=== PATIENT | male | born 1970 | race Caucasian/White ===

== ENCOUNTER 2019-07-24 18:00 | Inpatient (IN) | payer OTHER, SELFPAY ==
[~2019-07-24] VITALS: Ht 172.7 cm; Wt 90.7 kg
[2019-07-24 18:00] VITALS: BP_SYST 116
--- NOTE | 2019-07-24 18:00 | NUR ---
Patient to ER bed 8 to gown for evaluation. Side rails up.
--- NOTE | 2019-07-24 18:10 | NUR ---
pt arrives from home w/ c/o cough and congestion. Pt is currently afebrile. Pt was tested for the flu elsewhere, and was negative for both a and b. Pt was dx w/ PNA and recently finished a z-pack. No no other c/o at the moment. Will continue to monitor
--- NOTE | 2019-07-24 18:15 | NUR ---
ER at bedside examining patient.
--- NOTE | 2019-07-24 18:20 | NUR ---
EKG done and given to
[2019-07-24 19:12] LABS: BASOPHILS % (AUTO) 0.4 % (0.0-2.0); EOSINOPHILS % (AUTO) 0.1 % (0.0-4.0); HEMATOCRIT 40.3 % (36-54); HEMOGLOBIN 13.7 g/dL (14.0-18.0); LYMPHOCYTES # (AUTO) 0.8 K/uL (1.0-5.5); LYMPHOCYTES % (AUTO) 14.7 % (20.5-51.5); MEAN CORPUSCULAR HEMOGLOBIN 30 pg (27-31); MEAN CORPUSCULAR HGB CONC 34 % (32-36); MEAN CORPUSCULAR VOLUME 89 fL (79.0-98.0); MONOCYTES # (AUTO) 0.2 K/uL (0.0-1.0); MONOCYTES % (AUTO) 4.5 % (1.7-9.3); NEUTROPHILS # (AUTO) 4.2 K/uL (1.8-7.7); NEUTROPHILS % (AUTO) 80.3 % (40.0-70.0); PLATELET COUNT (AUTO) 141 K/uL (130-430); RED BLOOD CELL COUNT(AUTO) 4.53 MIL/uL (4.2-6.2); RED CELL DISTRIBUTION WIDTH 13.5 % (9.0-15.0); WHITE BLOOD COUNT (AUTO) 5.2 K/uL (4.8-10.8)
[2019-07-24] MEDS ORDERED: VANCOMYCIN HCL 1,000 MG in D5W 250 ML IV ONE (19:15)
[2019-07-24] MEDS ORDERED: PIPERACILLIN/TAZO 3.38 GM in D5W 50 ML IV ONE (19:15)
--- NOTE | 2019-07-24 19:20 | NUR ---
Report given to Cathy QUINTANILLA. Pt is in stable condition
--- NOTE | 2019-07-24 19:25 | NUR ---
Covid-19 collected sent to lab
--- NOTE | 2019-07-24 19:25 | NUR ---
Zosyn currently infusing per MD order.
[2019-07-24] MEDS ORDERED: PIPERACILLIN/TAZOBACTAM 3.375 GM/VIAL (ZOSYN) IV ONE (19:33)
[2019-07-24 19:57] LABS: POTASSIUM 3.8 mmol/L (3.5-5.1)
[2019-07-24 19:58] LABS: ALBUMIN 3.4 g/dL (3.4-4.8); CALCIUM 7.3 mg/dL (8.4-11.0); CREATININE 1.03 mg/dL (0.55-1.30); TOTAL BILIRUBIN 0.4 mg/dL (0.0-1.0)
[2019-07-24] MEDS ORDERED: VANCOMYCIN HCL 1000 MG/VIAL IV ONE (20:24)
[2019-07-24 20:41] LABS: PROTHROMBIN TIME 10.4 SECS (9.5-12.5)
--- NOTE | 2019-07-24 20:43 | NUR ---
Patient will be admitted to care of Dr. Topete / Dr Ballesteros. Admitted to telemetry unit. Will go to room 126 B. Belongings list completed. Complete and up to date summary report printed. SBAR report to be given at bedside with opportunity for questions.
--- NOTE | 2019-07-24 21:00 | NUR ---
Patient's code status is full code paperwork completed and placed in chart.
[2019-07-24] MEDS ORDERED: BREX0.25 PO (21:06)
[2019-07-24] MEDS ORDERED: BUPR75TA8 PO (21:06)
[2019-07-24] MEDS ORDERED: PRO20 PO (21:06)
[2019-07-24] MEDS ORDERED: LAM25 PO (21:06)
--- NOTE | 2019-07-24 21:07 | NUR ---
Medication reconciliation completed with information provided by patient. He is unsure dosages and will have call to clarify dosages. . Any prior medication reconciliation on file was reviewed and corrected.
--- NOTE | 2019-07-24 21:50 | NUR ---
Patient able to obtain medication list. Medications updated in system.
--- NOTE | 2019-07-24 22:17 | NUR ---
Transfer to Telemetry via ACLS protocol. Licensed nurse present. IV present no signs or symptoms of infiltration.
[2019-07-24 22:35] VITALS: BP_SYST 126
--- NOTE | 2019-07-24 22:35 | NUR ---
Admission Note Received patient from ER with diagnosis of Pneumonia rule out COVID. Initial Plan of Care discussed-patient verbalized understanding. Oriented to room, call light, pain management and safety.
--- NOTE | 2019-07-24 22:40 | NUR ---
INITIAL NOTES Patient is resting, no signs of distress observed. Patient states 0/10 pain, no shortness of breath. IV site patent, dressing c/d/i. Call light within reach, bed alarm off per patient request, patient verbalizes understanding of use of call light and is able to demonstrate back. Bed at lowest position. Will continue to monitor.
--- NOTE | 2019-07-25 00:05 | NUR ---
Patient is resting, states 0/10 pain. no shortness of breath noted. Will continue to monitor.
--- NOTE | 2019-07-25 00:14 | NUR ---
PAGED I PAGED I SPOKE IVY EXCHANGE
--- NOTE | 2019-07-25 00:30 | NUR ---
SPOKE TO DR. BRITO, TO HOLD NIGHT TIME MEDS.
[2019-07-25] MEDS ORDERED: ALBUTEROL MDI INHALATION 8 GM INH INH PRN (01:15)
[2019-07-25] MEDS ORDERED: HYDROcodone/ACETAMIN 5-325 MG TAB (NORCO/ VICODIN) PO PRN (01:30)
--- NOTE | 2019-07-25 01:45 | NUR ---
DR. BRITO MAKING ROUNDS, TYLENOL FOR PATIENT MADE AVAILABLE.
[2019-07-25 01:49] VITALS: BP_SYST 126
--- NOTE | 2019-07-25 01:54 | NUR ---
CONSULT: CONSULT CALLED FOR DR. JARA I SPOKE WITH CESAR AGUILAR REASON FOR CONSULT: R/O YOUSIF REQUESTING CONSUL: DR. SALEH LAND DEVELOPMENT PROJECT MANAGER PHONE NUMBER: [phone]
--- NOTE | 2019-07-25 02:00 | NUR ---
Patient is resting, no signs of shortness of breath, patient is comfortable at this time. will continue to monitor.
[2019-07-25] MEDS ORDERED: cefTRIAXone 1 GM IVPB PREMIX 50 ML IV ONE (03:38)
[2019-07-25] MEDS ORDERED: AZITHROMYCIN 500 MG/VIAL (ZITHROMAX) IV ONE (03:38)
[2019-07-25] MEDS: cefTRIAXone 1 GM IVPB PREMIX 50 ML IV SCH (04:09)
--- NOTE | 2019-07-25 04:11 | NUR ---
Patient is resting, no signs of distress observed. Safety precautions in place. Will continue to monitor.
--- NOTE | 2019-07-25 04:44 | NUR ---
CONSULT: CONSULT CALLED FOR DR. BALLESTEROS I SPOKE WITH CESAR AGUILAR REASON FOR CONSULT: PNEUMONIA REQUESTING CONSULT: DR. SALEH
[2019-07-25] MEDS: ACETAMINOPHEN 325 MG TABLET PO PRN ×4 (05:04→23:02)
[2019-07-25] MEDS: AZITHROMYCIN 500 MG in NS 250 ML IV SCH (05:05)
--- NOTE | 2019-07-25 07:00 | NUR ---
CLOSING NOTES Patient is resting, no signs of distress observed. IV site patent, dressings c/d/i. Airborne, droplet and contact precautions maintained throughout shift. Call light within reach, bed alarm off after patient verbalizes understanding. Bed at lowest position. All needs met throughout shift. Will endorse care to oncoming shift.
[2019-07-25 07:14] LABS: BASOPHILS % (AUTO) 0.4 % (0.0-2.0); HEMATOCRIT 39.8 % (36-54); HEMOGLOBIN 13.4 g/dL (14.0-18.0); LYMPHOCYTES # (AUTO) 0.7 K/uL (1.0-5.5); LYMPHOCYTES % (AUTO) 15.6 % (20.5-51.5); MEAN CORPUSCULAR HEMOGLOBIN 30 pg (27-31); MEAN CORPUSCULAR HGB CONC 34 % (32-36); MEAN CORPUSCULAR VOLUME 88 fL (79.0-98.0); MONOCYTES # (AUTO) 0.2 K/uL (0.0-1.0); NEUTROPHILS # (AUTO) 3.6 K/uL (1.8-7.7); PLATELET COUNT (AUTO) 149 K/uL (130-430); WHITE BLOOD COUNT (AUTO) 4.5 K/uL (4.8-10.8)
[2019-07-25 07:20] LABS: ALANINE AMINOTRANSFERASE 40 U/L (12-78); ANION GAP 12 (5-15); ASPARTATE AMINOTRANSFERASE 29 U/L (10-37); CHLORIDE 98 mmol/L (98-107); CREATININE 1.04 mg/dL (0.55-1.30); GLUCOSE 103 mg/dL (70-99); POTASSIUM 3.3 mmol/L (3.5-5.1); SODIUM SERUM 133 mmol/L (136-145); TOTAL BILIRUBIN 0.4 mg/dL (0.0-1.0); UREA NITROGEN, BLOOD 14 mg/dL (8-21)
[2019-07-25 07:21] LABS: GFR AFRICAN AMERICAN 98 mL/min (>90)
--- NOTE | 2019-07-25 08:00 | NUR ---
Initial notes: Patient is AAOX4, he is Kuwaiti speaking. Does not seem in any kind of distress. Took his breakfast tray and medication without any problem. Patient states he feel well at the moment. His vitals are stable, no fever at the moment. Bed is low, locked, 2 side rails are up and call light is within reach. Sj QUINTANILLA
[2019-07-25] MEDS: ENOXAPARIN SODIUM 40 MG/0.4 ML SYRINGE SUBCUT SCH (08:30)
[2019-07-25 08:40] VITALS: BP_SYST 139
--- NOTE | 2019-07-25 09:28 | NUR ---
Nutrition Update Anderson Scale 18 noted. Pt admitted for pneumonia w/ r/o COVID. Diet: regular BMI: 30.4 kg/m2 RD to follow per nutrition care standards.
[2019-07-25] MEDS ORDERED: ALBUTEROL SULFATE 0.083% 2.5 MG/3 ML VIAL.NEB INH PRN (09:45)
--- NOTE | 2019-07-25 10:02 | NUR ---
Patient is sleeping, he ate 90% of the meal and is in bed. He states no new complaints. Bed is low, locked, 2 side rails are up and call light is within reach. Sj QUINTANILLA
--- NOTE | 2019-07-25 12:26 | NUR ---
Brought in tray for patient, states he has a headache, checked vitals, his temp is rising 99.6. Gave Tylenol for headache and helped patient sit up to eat meal. Bed is low, locked, 2 side rails are up and call light is within reach. Sj QUINTANILLA
[2019-07-25 12:29] VITALS: BP_SYST 124
[2019-07-25 16:08] VITALS: BP_SYST 108
--- NOTE | 2019-07-25 16:20 | NUR ---
Patient is sleeping, gave him tylenol as his temp is slowly rising. Patient states he feels well and only has a minor headache, will continue to monitor. Bed is low, locked, 2 side rails are up and call light is within reach. Sj QUINTANILLA
[2019-07-25] MEDS ORDERED: LAMO200T2 PO (16:33)
[2019-07-25] MEDS ORDERED: BREX2TAB PO (16:33)
--- NOTE | 2019-07-25 18:27 | NUR ---
Closing notes: Patient is doing better after tylenol, his vitals this evening were good. His IV site is intact. He doesn't seem in distress. brought home meds as pharmacy stated they didn't have one of the meds he needs. Has been given to pharmacy for verification. was paged to see if she can verify home meds. Covid test is still pending. I will give report to nightshift nurse. Bed is low, locked, 2 side rails are up and call light is within reach. Sj QUINTANILLA
--- NOTE | 2019-07-25 19:30 | NUR ---
OPENING NOTES Patient is resting, no signs of distress observed. IV site patent, dressings c/d/i. Call light within reach, bed alarm refused after patient verbalizes use of call light, bed at lowest position. Patient states no pain at this time. Airborne, droplet and contact precautions in place. Will continue to monitor.
[2019-07-25 20:00] VITALS: BP_SYST 120
--- NOTE | 2019-07-25 21:00 | NUR ---
Emptied urinal, patient resting comfortably. No signs of acute respiratory distress observed. Will continue to monitor.
--- NOTE | 2019-07-25 23:10 | NUR ---
Patient is asleep, rise and fall of chest observed. No signs of distress observed. Will continue to monitor.
[2019-07-26] VITALS: BP_SYST 121
[2019-07-26] MEDS: cefTRIAXone 1 GM IVPB PREMIX 50 ML IV SCH (00:40)
--- NOTE | 2019-07-26 01:21 | NUR ---
Patient is resting, deep breathing education provided. Patient states he feels no shortness of breath and is comfortable. Will continue to monitor and provide nasal canula at bedside. Will continue to monitor.
[2019-07-26] MEDS: AZITHROMYCIN 500 MG in NS 250 ML IV SCH (01:37)
--- NOTE | 2019-07-26 03:10 | NUR ---
Patient verbalizes understanding of use of nasal canula, no signs of distress observed. O2 saturation at 94% on 2L nasal canula. Will continue to monitor.
--- NOTE | 2019-07-26 04:00 | NUR ---
Patient is resting, no signs of distress observed. Patient resting comfortably, 96% O2 saturation on 2L NC. Will continue to monitor.
[2019-07-26] MEDS: ACETAMINOPHEN 325 MG TABLET PO PRN ×2 (06:25→17:09)
--- NOTE | 2019-07-26 06:43 | NUR ---
CLOSING NOTES Patient is resting, tylenol provided for headache of 3/, patient has 98.7 temperature. Iv site patent, dressings c/d/i. No signs of acute respiratory distress observed. Call light within reach, bed alarm off per patient request after patient verbalizes understanding. O2 saturation of 95 with 2L NC. All needs met throughout shift. All needs met throughout shift. Airborne, contact, and droplet precautions kept throughout shift.
[2019-07-26 08:35] VITALS: BP_SYST 147
--- NOTE | 2019-07-26 08:35 | NUR ---
Routine Patient sitting on side of bed with no distress noted. Scheduled medication given. Patient stable at this time.
[2019-07-26] MEDS: ENOXAPARIN SODIUM 40 MG/0.4 ML SYRINGE SUBCUT SCH (08:38)
--- NOTE | 2019-07-26 10:20 | NUR ---
Routine Patient resting comfortably in bed with no distress noted at this time. Patient stable.
[2019-07-26 12:05] VITALS: BP_SYST 96
--- NOTE | 2019-07-26 12:08 | NUR ---
CONSULTATION PAGED REASON FOR CONSULTATION:RULE OUT COVID-19 WAS CONSULT CALLED?Y PERSON WHO WAS NOTIFIED:JENNI MATHEWS CONSULTING PHYSICIAN:JENNI MATHEWS HIGH DENSITY TALC COATER OPERATOR SPECIALTY:INFECTIOUS DISEASE HIGH DENSITY TALC COATER OPERATOR PHONE NUMBER:[phone] REQUESTING PHYSICIAN:TEVIN BERTRAND
--- NOTE | 2019-07-26 13:08 | NUR ---
Spoke to Nedra at Dr. Ballesteros's office; awaiting call back regarding med rec.
[2019-07-26] MEDS: HYDROXYCHLOROQUINE SULFATE 200 MG TABLET PO SCH ×2 (15:48→21:42)
--- NOTE | 2019-07-26 15:50 | NUR ---
Routine Scheduled medication given per order. Patient stable at this time.
[2019-07-26 16:10] VITALS: BP_SYST 122
--- NOTE | 2019-07-26 16:10 | NUR ---
PAGED PAGED TEVIN BERTRAND AT [phone] SPOKE WITH FERNANDA,
--- NOTE | 2019-07-26 16:40 | NUR ---
Routine Patient resting comfortably in bed with no distress noted. Patient stable at this time.
--- NOTE | 2019-07-26 17:14 | NUR ---
MD ERICK MCDOWELL CALLED AT SPOKE WITH DR.KANGARLU WORTHY [employer]TER [employer]ANT SUPERVISOR.
--- NOTE | 2019-07-26 17:18 | NUR ---
Paged Dr. Ballesteros regarding completion of med rec. Spoke to Meena; awaiting call back from doctor.
[2019-07-26] MEDS ORDERED: buPROPion HCL 150 MG XL TAB PO ONE (17:30)
[2019-07-26] MEDS ORDERED: FLUoxetine HCL 20 MG CAPSULE (PROzac) PO ONE (17:30)
--- NOTE | 2019-07-26 19:20 | NUR ---
OPENING NOTE Bedside report received from dayshift nurse. Patient received lying in bed, eyes closed, no s/s of acute distress noted. Breathing is even and unlabored. Call light with patient. Will continue to monitor and will maintain droplet precaution throughout shift.
[2019-07-26 20:00] VITALS: BP_SYST 111
--- NOTE | 2019-07-26 21:00 | NUR ---
MEDPASS/NEW IV SITE Scheduled medications given to patient. Patient tolerated well. IV site at left AC got pulled out, DC'ed at this time, catheter fully intact, no active bleeding noted. NEW IV site inserted at left hand, 22 gauge, patient tolerated well, IV site patent, no signs of infiltration noted. Will monitor for signs of infection. All needs met at this time. Call light with patient. Will continue to monitor.
[2019-07-26] MEDS: LamoTRIgine 100 MG TABLET PO SCH (21:38)
--- NOTE | 2019-07-26 23:00 | NUR ---
ROUNDS Patient in bed sleeping at this time. No s/s of acute distress noted. Breathing even and unlabored. Will continue to monitor.
[2019-07-27] VITALS: BP_SYST 118
[2019-07-27] MEDS: cefTRIAXone 1 GM IVPB PREMIX 50 ML IV SCH (00:26)
--- NOTE | 2019-07-27 01:00 | NUR ---
IV ANTIBIOTICS HUNG Antibiotics hung at this time, infusing well, IV site patent, no signs of infiltration or infection noted. No s/s of acute distress noted. Breathing even and unlabored. Call light with patient. Will continue to monitor.
[2019-07-27] MEDS: AZITHROMYCIN 500 MG in NS 250 ML IV SCH (01:09)
--- NOTE | 2019-07-27 03:00 | NUR ---
ROUNDS Patient in bed asleep. No s/s of acute distress noted. Breathing even and unlabored. Call light with patient. Will continue to monitor.
--- NOTE | 2019-07-27 05:00 | NUR ---
ROUNDS Patient in bed asleep at this time. No signs of discomfort noted. Chest rise and fall even bilaterally. Call light with patient. Will continue to monitor.
--- NOTE | 2019-07-27 06:38 | NUR ---
CLOSING NOTES Patient in bed sleeping. No s/s of acute distress noted. Breathing even and unlabored. HOB raised, nasal canula attached properly, on 2L of oxygen. IV site is patent, no signs of infiltration or infection noted. All needs met throughout shift. Fall, safety, and isolation precautions maintained throughout shift. Will continue to monitor until patient care is endorsed to oncoming dayshift nurse.
--- NOTE | 2019-07-27 07:45 | NUR ---
INITIAL NOTE Received pt in bed, no s/s of distress or sob noted. Pt has no c/o pain at this time, pt aaox4, verbal. Pt has oxygen at 2 liters via nasal cannula, saturation of 94%. IV site is patent, no signs of infiltration or infection noted, saline lock. Fall, safety, and isolation precautions in place. Bed at lowest position, call light within reach, will continue to monitor pt for any changes.
[2019-07-27 08:10] VITALS: BP_SYST 133
[2019-07-27 08:47] LABS: ALBUMIN 2.6 g/dL (3.4-4.8); BILIRUBIN,DIRECT 0.1 mg/dL (0.0-0.3); TOTAL BILIRUBIN 0.4 mg/dL (0.0-1.0)
[2019-07-27] MEDS: FLUoxetine HCL 20 MG CAPSULE (PROzac) PO SCH (09:42)
[2019-07-27] MEDS: buPROPion HCL 150 MG XL TAB PO SCH (09:42)
[2019-07-27] MEDS: HYDROXYCHLOROQUINE SULFATE 200 MG TABLET PO SCH ×2 (09:43→21:00)
[2019-07-27] MEDS: ACETAMINOPHEN 325 MG TABLET PO PRN (09:43)
[2019-07-27] MEDS: ENOXAPARIN SODIUM 40 MG/0.4 ML SYRINGE SUBCUT SCH (09:44)
--- NOTE | 2019-07-27 10:13 | NUR ---
Rounds Pt in bed, no s/s of distress or sob noted, pt stated that his headache is getting better, pt in stable condition, pt watching tv, will continue to monitor pt for any changes.
--- NOTE | 2019-07-27 11:55 | NUR ---
MD CALL SPOKE WITH DR TATE AND PER MD IF PATIENT'S SATURATION IS WNL ON ROOM AIR THEN PT CAN BE D/C HOME TODAY FOR SELF ISOLATION. WILL CHECK OXYGEN SATURATION ON ROOM AIR.
[2019-07-27] MEDS ORDERED: ASCORBIC ACID 500 MG TABLET PO ONE (12:00)
--- NOTE | 2019-07-27 12:06 | NUR ---
ROUNDS PT IN BED, EATING LUNCH. NO S/S OF DISTRESS OR SOB NOTED, PT IN STABLE CONDITION, WILL CONTINUE TO MONITOR PT FOR ANY CHANGES.
[2019-07-27 12:30] VITALS: BP_SYST 109
--- NOTE | 2019-07-27 13:30 | NUR ---
SATURATION PT SATURATION DROPPED DOWN TO 88% WHEN PT WAS ON ROOM AIR. PT DID NOT C/O SOB OR CHEST PAIN. PLACE PT BACK ON OXYGEN 1 LITER VIA NASAL CANNULA. WILL CONTINUE TO MONITOR PT FOR ANY CHANGES. PT HAS AN OCCASIONAL COUGH.
--- NOTE | 2019-07-27 14:50 | NUR ---
ROUNDS PT IN BED, WATCHING TV. NO S/S OF DISTRESS OR SOB NOTED, PT IN STABLE CONDITION, WILL CONTINUE TO MONITOR PT FOR ANY CHANGES.
--- NOTE | 2019-07-27 16:20 | NUR ---
ROUNDS PT IN BED, ON HIS PHONE. NO S/S OF DISTRESS OR SOB NOTED, PT IN STABLE CONDITION, WILL CONTINUE TO MONITOR PT FOR ANY CHANGES.
[2019-07-27 16:53] VITALS: BP_SYST 112
--- NOTE | 2019-07-27 18:18 | NUR ---
CLOSING NOTE Pt in bed, no s/s of distress or sob noted. Pt has no c/o pain at this time, pt aaox4, verbal. Pt has oxygen at 1 liters via nasal cannula, saturation of 93%. IV site is patent, no signs of infiltration or infection noted, saline lock. Fall, safety, and isolation precautions in place. Bed at lowest position, call light within reach, will endorse care of pt to incoming nurse. Needs met throughout shift.
--- NOTE | 2019-07-27 19:15 | NUR ---
OPENING NOTE Report received from dayshift nurse. Patient received lying in bed, no s/s of acute distress noted. Breathing even and unlabored, nasal canula attached properly, on 1L of oxygen. IV site is patent, no signs of infiltration or infection noted. Call light with patient. Will continue to monitor.
[2019-07-27 20:00] VITALS: BP_SYST 130
[2019-07-27] MEDS ORDERED: HYDROXYCHLOROQUINE SULFATE 200 MG TABLET PO SCH (21:00)
--- NOTE | 2019-07-27 21:00 | NUR ---
ROUNDS Patient in bed sleeping. No signs of discomfort noted. Chest rise and fall even bilaterally. nasal cannula attached properly, on 1L of oxygen. Call light with patient. Will continue to monitor.
[2019-07-27] MEDS: LamoTRIgine 100 MG TABLET PO SCH (22:47)
--- NOTE | 2019-07-27 23:00 | NUR ---
ROUNDS Patient sleeping at this time. No s/s of acute distress noted. Call light with patient. Will continue to monitor.
[2019-07-28] VITALS: BP_SYST 128
[2019-07-28] MEDS: AZITHROMYCIN 500 MG in NS 250 ML IV SCH (00:57)
--- NOTE | 2019-07-28 01:00 | NUR ---
ROUNDS Patient sleeping at this time. IV antibiotic infusing. No signs of discomfort noted. Call light with patient. Will continue to monitor.
[2019-07-28] MEDS: ONDANSETRON HCL 4 MG/2 ML VIAL IVP PRN (01:19)
[2019-07-28] MEDS: cefTRIAXone 1 GM IVPB PREMIX 50 ML IV SCH (02:09)
--- NOTE | 2019-07-28 03:00 | NUR ---
ROUNDS Patient in bed asleep at this time. No s/s of acute distress noted. Breathing even and unlabored. Call light with patient. Will continue to monitor.
--- NOTE | 2019-07-28 05:00 | NUR ---
ROUNDS Patient in bed sleeping at this time. No signs of discomfort noted. Chest rise and fall even bilaterally. Call light with patient. Will continue to monitor.
--- NOTE | 2019-07-28 06:46 | NUR ---
CLOSING NOTES Patient sleeping at this time. No s/s of acute distress noted. Breathing even and unlabored. Nasal canula attached properly, on 1L of oxygen. IV site is patent, no signs of infiltration or infection noted. All needs met throughout shift. Fall, safety, and isolation precautions maintained throughout shift. Will continue to monitor until patient care is endorsed to oncoming dayshift nurse.
[2019-07-28 07:04] LABS: ALBUMIN 2.6 g/dL (3.4-4.8); BILIRUBIN,DIRECT 0.1 mg/dL (0.0-0.3); TOTAL BILIRUBIN 0.4 mg/dL (0.0-1.0)
[2019-07-28 08:22] VITALS: BP_SYST 119
--- NOTE | 2019-07-28 08:22 | NUR ---
INITIAL ROUNDS Received pt AAOx4, no s/s resp distress, no c/o shortness of breath, no c/o pain or discomfort. Plan of care for the day reviewed with pt-pt verbalized his understanding. Pt on Droplet Isolation precautions. Pain management, disease process, isolation, skin and safety precautions discussed with pt-teach back done. Call light within reach.
[2019-07-28] MEDS: HYDROXYCHLOROQUINE SULFATE 200 MG TABLET PO SCH ×2 (09:00→20:15)
[2019-07-28] MEDS: buPROPion HCL 150 MG XL TAB PO SCH (09:37)
[2019-07-28] MEDS: FLUoxetine HCL 20 MG CAPSULE (PROzac) PO SCH (09:37)
[2019-07-28] MEDS: ASCORBIC ACID 500 MG TABLET PO SCH (09:38)
[2019-07-28] MEDS: ENOXAPARIN SODIUM 40 MG/0.4 ML SYRINGE SUBCUT SCH (09:39)
[2019-07-28 12:17] VITALS: BP_SYST 119
[2019-07-28 12:35] VITALS: BP_SYST 115
--- NOTE | 2019-07-28 12:40 | NUR ---
ROUNDS Pt resting quietly in bed with no s/s resp distress, no c/o pain or discomfort. Pt given lunch tray and fresh ice water. Needs met, all precautions remain in place. Call light within reach.
--- NOTE | 2019-07-28 14:19 | NUR ---
ROUNDS Pt resting quietly in bed with no s/s resp distress, no c/o pain or discomfort. No changes, all precautions remain in place, call light within reach.
[2019-07-28 16:08] VITALS: BP_SYST 128
--- NOTE | 2019-07-28 19:00 | NUR ---
CLOSING NOTE Pt resting quietly in bed with no s/s resp distress, no c/o pain or discomfort. Needs met. Droplet isolation precautions maintained throughout shift. Call light within reach.
[2019-07-28] MEDS: LamoTRIgine 100 MG TABLET PO SCH (20:15)
--- NOTE | 2019-07-28 20:15 | NUR ---
Initial note: Received report from dayshift RN. Patient is awake, laying in bed, watching TV. No acute distress. Denies pain, nausea, or shortness of breath. Alert and oriented x4. SaO2 = 93% on 3L NC. IV site to left hand in place, flushes well with NS without any infiltration, site saline locked. Provided patient with fresh ice water and hygiene supplies. Call light is with patient. Safety, fall precautions in place. Special droplet precautions in place for positive COVID-19. Will continue with plan of care.
[2019-07-28 20:34] VITALS: BP_SYST 118
--- NOTE | 2019-07-29 00:15 | NUR ---
Rounds: Patient is resting in bed, no acute distress. Tolerating 3L NC, even and unlabored respirations. IV is patent and intact, will initiate infusion of scheduled Rocephin IV. Call light is with patient. Will continue to monitor.
[2019-07-29] MEDS: cefTRIAXone 1 GM IVPB PREMIX 50 ML IV SCH (00:20)
[2019-07-29 00:43] VITALS: BP_SYST 119
[2019-07-29] MEDS: ACETAMINOPHEN 325 MG TABLET PO PRN ×2 (01:09→21:54)
[2019-07-29] MEDS: AZITHROMYCIN 500 MG in NS 250 ML IV SCH (01:09)
--- NOTE | 2019-07-29 01:12 | NUR ---
Headache: Patient complaining of a headache and requested Tylenol. Administered 650 MG Tylenol as indicated. Education provided regarding indications, side effects. Patient verbalized understanding. Call light with patient. Will continue monitoring.
--- NOTE | 2019-07-29 04:50 | NUR ---
Rounds: Patient is resting in bed, no acute distress. Even and unlabored breathing on 3L NC, SaO2 = 99%. Titrated O2 down to 2L, patient tolerating well, SaO2 = 98%. IV site patent and intact. Call light with patient. Will continue monitoring.
--- NOTE | 2019-07-29 06:34 | NUR ---
Closing note: Patient is resting in bed. Does not show any acute distress. Tolerating 2L NC, SaO2 = 99%. Denies pain, shortness of breath, nausea. IV site patent and intact. Call light with patient. All needs met. Safety, fall precautions observed. Special droplet/contact isolation precautions maintained. Will endorse care to dayshift RN.
--- NOTE | 2019-07-29 07:15 | NUR ---
OPENING NOTES PT AWAKE, ALERT, AND ORIENTED SITTING UP AT THE EDGE OF THE BED. NONLABORED BREATHING NOTED, O2 AT 94%. NO ACUTE DISTRESS NOTED. IV LINE INTACT AND PATENT, NO SIGNS OF INFILTRATION NOTED. PT DENIES PAIN AT THIS TIME. ALL NEEDS MET. CALL LIGHT IN REACH. DROPLET AND CONTACT PRECAUTIONS IN PLACE. FALL AND ASPIRATION PRECAUTIONS IN PLACE. CONTINUE TO MONITOR. Addendum: 07/29/19 at 0825 by Shawna Reeves RN PT ON 2L VIA NASAL CANNULA, TOLERATING WELL.
[2019-07-29 08:06] VITALS: BP_SYST 116
[2019-07-29] MEDS: FLUoxetine HCL 20 MG CAPSULE (PROzac) PO SCH (08:57)
[2019-07-29] MEDS: buPROPion HCL 150 MG XL TAB PO SCH (08:57)
[2019-07-29] MEDS: HYDROXYCHLOROQUINE SULFATE 200 MG TABLET PO SCH ×2 (08:57→22:05)
[2019-07-29] MEDS: ASCORBIC ACID 500 MG TABLET PO SCH (08:57)
[2019-07-29] MEDS: ENOXAPARIN SODIUM 40 MG/0.4 ML SYRINGE SUBCUT SCH (08:58)
--- NOTE | 2019-07-29 09:02 | NUR ---
ROUTINE MEDS ROUTINE MEDS ADMINISTERED ORDERED PER MD, EDUCATION GIVEN, TOLERATED WELL. NO ACUTE DISTRESS NOTED. ALL NEEDS MET. CALL LIGHT IN REACH. NONLABORED BREATHING NOTED, RECEIVING 2L OF O2 VIA NASAL CANNULA, TOLERATING WELL. ALL NEEDS MET. CALL LIGHT IN REACH. CONTINUE TO MONITOR.
[2019-07-29 09:20] LABS: ALBUMIN 2.6 g/dL (3.4-4.8); BILIRUBIN,DIRECT 0.2 mg/dL (0.0-0.3); TOTAL BILIRUBIN 0.5 mg/dL (0.0-1.0)
[2019-07-29 10:01] LABS: BASOPHILS % (AUTO) 0.3 % (0.0-2.0); CALCIUM 8.3 mg/dL (8.4-11.0); CREATININE 0.96 mg/dL (0.55-1.30); EOSINOPHILS # (AUTO) 0.1 K/uL (0.0-0.4); EOSINOPHILS % (AUTO) 1.6 % (0.0-4.0); HEMATOCRIT 41.6 % (36-54); HEMOGLOBIN 13.9 g/dL (14.0-18.0); LYMPHOCYTES # (AUTO) 0.8 K/uL (1.0-5.5); LYMPHOCYTES % (AUTO) 15.6 % (20.5-51.5); MEAN CORPUSCULAR HEMOGLOBIN 30 pg (27-31); MEAN CORPUSCULAR HGB CONC 33 % (32-36); MEAN CORPUSCULAR VOLUME 89 fL (79.0-98.0); MONOCYTES # (AUTO) 0.4 K/uL (0.0-1.0); MONOCYTES % (AUTO) 8.6 % (1.7-9.3); NEUTROPHILS # (AUTO) 3.6 K/uL (1.8-7.7); NEUTROPHILS % (AUTO) 73.9 % (40.0-70.0); PLATELET COUNT (AUTO) 269 K/uL (130-430); POTASSIUM 3.7 mmol/L (3.5-5.1); RED BLOOD CELL COUNT(AUTO) 4.69 MIL/uL (4.2-6.2); RED CELL DISTRIBUTION WIDTH 13.4 % (9.0-15.0); WHITE BLOOD COUNT (AUTO) 4.9 K/uL (4.8-10.8)
--- NOTE | 2019-07-29 11:00 | NUR ---
ROUNDS PT WATCHING TV IN BED. NO ACUTE DISTRESS NOTED. RECEIVING O2 AT 2LPM, TOLERATING WELL, DENIES SOB. ALL NEEDS MET. CALL LIGHT IN REACH. CONTINUE TO MONITOR.
[2019-07-29 12:10] VITALS: BP_SYST 117
--- NOTE | 2019-07-29 12:28 | NUR ---
GAVE LUNCH TO PT. VITAL SIGNS STABLE. PT SITTING UP AT THE EDGE OF THE BED. PT DENIES PAIN AND DENIES SOB AT THIS TIME. NONLABORED BREATHING NOTED, RECEIVING 2L OF OXYGEN VIA NASAL CANNULA, TOLERATING WELL, O2 AT 96%. NO ACUTE DISTRESS NOTED. ALL NEEDS MET. CALL LIGHT IN REACH. CONTACT AND DROPLET PRECAUTIONS IN PLACE. CONTINUE TO MONITOR.
--- NOTE | 2019-07-29 14:00 | NUR ---
ROUNDS PT WATCHING TV. NO ACUTE DISTRESS NOTED. ALL NEEDS MET. CALL LIGHT INR EACH. CONTINUE TO MONITOR.
[2019-07-29 16:00] VITALS: BP_SYST 126
--- NOTE | 2019-07-29 19:11 | NUR ---
CLOSING NOTES PT AWAKE, ALERT, AND ORIENTED. NONLABORED BREATHING NOTED, RECEIVING OXYGEN AT 2LPM VIA NASAL CANNULA. PT DENIES PAIN AND DENIES SOB AT THIS TIME. IV LINE INTACT AND PATENT, NO SIGNS OF INFILTRATION NOTED. NO ACUTE DISTRESS NOTED. ALL NEEDS MET. CALL LIGHT IN REACH. FALL AND ASPIRATION PRECAUTIONS IN PLACE. WILL ENDORSE TO NOC NURSE.
--- NOTE | 2019-07-29 19:40 | NUR ---
Initial note: Received report from sharon RN. Patient is awake, no acute distress. Even and unlabored respirations on 2L NC. IV site patent and benign. Call light with patient. Safety, fall precautions in place. Special contact/droplet precautions in place for positive COVID-19. Will continue with plan of care.
[2019-07-29 20:00] VITALS: BP_SYST 118
[2019-07-29] MEDS: LamoTRIgine 100 MG TABLET PO SCH (21:54)
--- NOTE | 2019-07-29 22:40 | NUR ---
Paged: Dr. Cabrera (on-call for Dr. Verma) paged for orders.
--- NOTE | 2019-07-29 23:01 | NUR ---
Dr. Cabrera: Spoke with MD over phone regarding Zithromax IV course duration. Informed MD that Dr. Verma wrote in his notes to continue with Zithromax IV for total of 7 days, and that the current order is for total of 5 days. MD was updated regarding patient's current status. Per MD, 5 days of Zithromax IV should be fine for the moment. No new orders received.
--- NOTE | 2019-07-30 00:35 | NUR ---
Rounds: Patient is laying in bed, no acute distress. SaO2 on 2L NC = 100%. Even and unlabored breathing. O2 titrated down via nasal cannula to 1L/min via nasal cannula, patient tolerating well, SaO2 on 1L NC = 96%. Call light is with patient. Will continue monitoring.
[2019-07-30 00:36] VITALS: BP_SYST 119
[2019-07-30] MEDS: cefTRIAXone 1 GM IVPB PREMIX 50 ML IV SCH (02:08)
--- NOTE | 2019-07-30 03:20 | NUR ---
Rounds: Patient is awake, resting in bed, no acute distress. SaO2 on 1L NC = 97%. Respirations are even, unlabored. Patient verbalized that he has been going to the bathroom without O2, denies any shortness of breath while ambulating. Patient was placed on room air at this time, patient tolerating well, SaO2 on room air = 95%. Call light is with patient. Will continue monitoring.
--- NOTE | 2019-07-30 06:43 | NUR ---
Closing note: Patient is sleeping. No acute distress. Tolerating room air, even and unlabored breathing. IV site patent and benign. All needs met. Safety, fall, special contact/droplet precautions observed. Call light with patient. Will endorse care to dayshift RN.
[2019-07-30 07:28] LABS: ALBUMIN 2.5 g/dL (3.4-4.8); BILIRUBIN,DIRECT 0.1 mg/dL (0.0-0.3); TOTAL BILIRUBIN 0.4 mg/dL (0.0-1.0)
[2019-07-30 08:00] VITALS: BP_SYST 119
--- NOTE | 2019-07-30 08:00 | NUR ---
initial notes rec patient awake alert with ivl on the l hand intact. no infiltration noted. bed to the lowest position and side rails up and locked. bed to the lowest position and side rails up and locked, call light within reached and knows when to call for help. due meds were given and farhana well.
[2019-07-30] MEDS: HYDROXYCHLOROQUINE SULFATE 200 MG TABLET PO SCH (09:00)
[2019-07-30] MEDS: FLUoxetine HCL 20 MG CAPSULE (PROzac) PO SCH (09:00)
[2019-07-30] MEDS: buPROPion HCL 150 MG XL TAB PO SCH (09:00)
[2019-07-30] MEDS: ASCORBIC ACID 500 MG TABLET PO SCH (09:00)
[2019-07-30] MEDS: ENOXAPARIN SODIUM 40 MG/0.4 ML SYRINGE SUBCUT SCH (09:00)
[2019-07-30] MEDS: ONDANSETRON HCL 4 MG/2 ML VIAL IVP PRN (09:00)
--- NOTE | 2019-07-30 10:53 | NUR ---
rounds dr lancaster is here and would like to d/c patient.
[2019-07-30 12:00] VITALS: BP_SYST 121
--- NOTE | 2019-07-30 12:00 | NUR ---
rounds seen by dr lancaster and dr sullivan .
[2019-07-30] MEDS ORDERED: ALBMDI INH (15:04)
[2019-07-30] MEDS ORDERED: AMOX500C2 PO (15:04)
[2019-07-30 15:23] VITALS: BP_SYST 121
--- NOTE | 2019-07-30 15:30 | NUR ---
rounds pt was seen by dr donovan and stated patient can be discharged. dr sullivan came and d/c patient.
--- NOTE | 2019-07-30 16:50 | NUR ---
closing notes pt was d/cd. exit care rendered. instructed re appt with dr glover and call his office in the [facility]. dr lancaster instruction to isolate himself for 7 days more. was sent home with plaquenil 4 tabs of [address] mcpherson. instructed to take 2 tabs tonight and 2 in am to complete the dose . ivl and id band were removed and monitor box was left in the room. no acute distress noted . was wheeled outside via wheelchair where the was waiting.
== END 2019-07-30 16:45 | disposition home or self-care (01) | DRG 177 ==
LOC: SED 18:00 → EEVIPCON 20:21 → STU 20:21
PROVIDERS: ADMIT Internal Medicine Hospice and Palliative Medicine; ATTEND Internal Medicine Hospice and Palliative Medicine
DX: U07.1 COVID-19 (principal); A41.9 Sepsis, unspecified organism; J18.9 Pneumonia, unspecified organism; J96.01 Acute respiratory failure with hypoxia; J12.89 Other viral pneumonia; F32.9 Major depressive disorder, single episode, unspecified; Z78.9 Other specified health status
CPT/HCPCS: 36415; 71045; 80048; 80053; 80076; 83605; 83880; 84484; 85025; 85610-TC; 85730-TC; 87040-TC; 87086; 87186-TC; 93005; 96365; 96366; 96367; 99285; G0378; J0456; J0696; J1650; J2405; J2543; J3370; J7050